=== PATIENT | female | born 1995 | race Caucasian/White ===

== ENCOUNTER 2017-08-24 14:00 | Emergency (ER) | payer SELFPAY ==
[~2017-08-24] VITALS: Ht 180.3 cm; Wt 68.2 kg
[2017-08-24 14:12] VITALS: BP 114/75; TEMP 99.2
[2017-08-24 15:26] VITALS: PULSE 80
== END 2017-08-24 15:27 | disposition home or self-care (01) ==
LOC: COL.ER 14:00
DX: S60.222A Contusion of left hand, initial encounter (principal); F17.210 Nicotine dependence, cigarettes, uncomplicated; W01.0XXA Fall on same level from slipping, tripping and stumbling without subsequent striking against object, initial encounter; Y92.410 Unspecified street and highway as the place of occurrence of the external cause